=== PATIENT | female | born 1960 | race Caucasian/White ===

== ENCOUNTER 2024-12-11 19:17 | Observation (INO) ==
--- NOTE | 2024-12-11 19:40 | Emergency Department Note ---
HPI - Fall General Chief Complaint: Fall Stated Complaint: FALL Time Seen by Provider: 12/11/24 19:28 Source: patient Mode of arrival: walk-in Limitations: no limitations History of Present Illness MD complaint: Reports fall Onset (ago): hour(s) Fall from: Reports standing Fall witnessed: Reports yes, by family Place fall occurred: Reports home Loss of consciousness: none Prolonged down time: Reports no Symptoms prior to fall: Reports none Context: Reports tripped/slipped Location of injury: Reports head and pelvis Location of injury - extremities: Left: shoulder (pain and tenderness) Severity: moderate Quality: Reports sharp, aching and throbbing Associated symptoms (after fall): Reports headache and other (Pain, tenderness, contusion, hip pain) Related Data Allergies Allergy/AdvReac Type Severity Reaction Status Date / Time No Known Drug Allergies Allergy Verified 12/11/24 19:44 Review of Systems 2 Status of ROS 10 or more systems reviewed and unremark able except as noted in history and below Musculoskeletal Reports: extremity pain, joint pain and limited range of motion Integumentary/Breast Reports: redness and skin tenderness Neurological Reports: headache Psychiatric Reports: [facility] Medical History (Updated 12/11/24 @ 22:20 by Alysia Sin RN) Patient denies medical problems Surgical History (Updated 12/11/24 @ 22:21 by Alysia Sin RN) H/O: hysterectomy Hx of elbow surgery History of nasal surgery Social History Smoking status: never smoker Feel stressed/tense/nervous/anxious/difficulty sleeping: rather much Life stressor details: Current medical condition Exam 2 Constitutional: normal general appearance, distress noted (moderate), average body habitus, no limitations and alert Vital Signs - 24 hr 12/11/24 19:20 12/11/24 20:00 12/11/24 20:30 Temperature 97.2 F L Pulse Rate 74 68 71 Respiratory Rate 20 20 20 Blood Pressure 133/77 147/69 128/72 Pulse Oximetry 99 98 98 Oxygen Delivery Me thod Room Air Room Air Room Air 12/11/24 21:00 12/11/24 21:30 12/11/24 22:30 Temperature Pulse Rate 69 64 70 Respiratory Rate 18 18 18 Blood Pressure 133/73 132/68 131/75 Pulse Oximetry 98 98 99 Oxygen Delivery Me thod Room Air Room Air Room Air 12/12/24 00:30 12/12/24 01:00 12/12/24 01:30 Temperature Pulse Rate 65 66 68 Respiratory Rate 18 17 16 Blood Pressure 117/64 111/52 110/61 Pulse Oximetry 97 97 97 Oxygen Delivery Me thod Room Air Room Air Room Air 12/12/24 02:00 Temperature Pulse Rate 65 Respiratory Rate 18 Blood Pressure 104/56 Pulse Oximetry 97 Oxygen Delivery Dc thod Room Air HENMT: normocephalic, head/scalp traumatic (Hematoma to left occipital/parietal portion of head.) (tenderness), (contusion) and (hematoma), hearing grossly normal bilaterally, external ears normal, nasal mucous membranes normal, external nose normal, oral mucous membranes normal, oropharynx normal, dentition normal and gingiva normal Eyes: PERRL, EOMs intact bilaterally, conjunctivae normal, no scleral icterus, no papilledema, normal visual uribe by confrontation, alignment normal, periorbital findings normal and no nystagmus Neck/C-Spine: visual inspection normal, trachea midline, cervical spine nontender, cervical full ROM noted and supple Lymph: no lymphadenopathy noted and no lymphedema noted Chest: inspection of chest normal Respiratory: breath sounds equal bilaterally, normal respiratory effort, clear to auscultation bilaterally, no wheezes, no rales, no retractions and no use of accessory muscles Cardiovascular: normal heart rate noted, regular rhythm noted, no gallop, no JVD, peripheral pulses 2+ throughout and no additional abnormal heart sounds Gastrointestinal: abdomen normal to inspection, abdomen soft to palpation, nontender to palpation, nondistended, normoactive bowel sounds, no hepatosplenomegaly, no masses, no pulsatile mass and no ascites Genitourinary: no CVA tenderness and bladder normal to palpation Back/Pelvis: spine normal to inspection, no thoracic spine tenderness, no lumbar spine tenderness, thoracic spine ROM normal, lumbar spine ROM normal and no paraspinal muscle tenderness noted Extremities: normal to inspection, normal to palpation, tenderness noted, full ROM, no joint enlargement and no deformity Patient reports pain and tenderness on palpation of the left shoulder and in the humeral head joint, there is no noted crepitus, deviation, or deformity noted there. Patient also reports pain and tenderness on palpation of the left hip and withdrawals from pain immediately on laying the hand on the hip without pressing. Unable to feel crepitus; however, patient would not allow full evaluation due to increase in pain. Neurology: lead java programmer II-XII intact, no movement abnormality noted, no focal motor deficit noted, no sensory deficits noted, gait abnormality noted (unable to access), speech normal, coordination normal, no pronator drift noted, no fasciculations noted and GCS normal Psychiatry: Mental Status Exam documented within this Exam's Psych section mental status grossly normal, oriented x3 (Patient is alert and oriented to her normal state), thought process normal, cooperative, affect normal, psychomotor activity normal and memory normal Feel stressed/tense/nervous/anxious/difficulty sleeping: rather much Life stressor details: Current medical condition Skin: skin color normal, no rash, no lesions, no ecchymosis noted, no wounds, no lacerations, skin turgor normal, no jaundice, no petechiae, no mottling, nails normal and no alopecia Image: Body (4 view): 1. Hematoma, tenderness 2. Pain and tenderness on palpation and with range of motion 3. Pain and tenderness to touch, pain on range of motion, does not want the area palpated or examined. Course Course Hospital Course: 64-year-old female who presented to ER with complaint of falling at home and landing on a concrete pad striking the left side of her head her left shoulder and left hip and having pain in all 3 areas has been evaluated by physical exam, CT of the head and brain, CT of the left hip, and plain film x-ray of the left shoulder with results as noted in charting. Patient's head CT reveals no acute intercranial process, plain film x-ray reveals no acute bony fracture of the left shoulder, and CT of the left hip reveals a acetabular wall fracture with 2 mm dislocation. Patient initially did not want pain medication; however, patient has since requested to receive pain medication including 4 mg of morphine and 4 mg of Zofran. Patient will be transferred to a orthopedics hospital as soon as EMS is available to transfer her. :0 200 [facility] transfer line has called back at this time and discussed case with Dr. Epps and after sending him video of the CT scan and reporting patient's ability to ambulate he reported patient should not be transferred but should be admitted to the hospital for pain control with additional plain film x-rays of the pelvis. He advised that patient could forego surgical operation initially and may not require 1 at all and should be referred to Ortho and to PT as he believes her fracture to be stable as she is able to bear weight. Patient has been made aware of the provider's decision to not accept transfer and is advisement of admission locally which patient has agreed with at this time. Patient [facility] be admitted to the [facility] for pain control and orthopedic follow-up in the morning. Consultations Consultation #1: Spoke with Dr. Epps via the [facility] transfer line concerning patient's case and was advised patient could be admitted locally and follow-up with orthopedist tomorrow and possibly may only need physical therapy versus surgical consult. Time: 02:00 Vital Signs Vital signs: Vital Signs Temperature 97.2 F L 12/11/24 19:20 Pulse Rate 74 12/11/24 19:20 Respiratory Rate 20 12/11/24 19:20 Blood Pressure 133/77 12/11/24 19:20 Pulse Oximetry 99 12/11/24 19:20 Oxygen Delivery Method Room Air 12/11/24 19:20 Temperature 97.2 F L 12/11/24 19:20 Pulse Rate 65 12/12/24 02:00 Respiratory Rate 18 12/12/24 02:00 Blood Pressure 104/56 12/12/24 02:00 Pulse Oximetry 97 12/12/24 02:00 Oxygen Delivery Method Room Air 12/12/24 02:00 MDM - Fall MDM Narrative Medical decision making narrative: Medical Decision Making this patient Volle physical exam, CT of the head and brain, CT of the left hip, and plain film x-ray of the left shoulder. Differential Diagnosis Differential diagnosis: Likely dislocation of shoulder region, compression fracture, concussion without loss of consciousness and other (Left hip fracture, left shoulder fracture, subdural hematoma, epidural hematoma) Imaging Data Imaging ordered: CT scan - head and other (CT scan hip, plain film x-ray left shoulder) Attestation: I have reviewed the pertinent imaging results. My impression: No acute bony fracture of the left shoulder Radiologist's impression: EXAM: CT HIP LT WO CON HISTORY: fall with pain and decreased ROMfall with pain and decreased ROM; COMPARISON: None TECHNIQUE: Multiple CT axial images of the left hip were obtained without administration of IV contrast. Sagittal and coronal reformats were performed and reviewed. Dose reduction techniques including Automated Exposure Control (AEC) and adjustment of mA and kV were utilized. FINDINGS: Acute fracture seen involving the posterior acetabular wall, no significant displacement up to 2 mm. Enthesophytes greater trochanter. No femoral neck fracture. No dislocation. Visualized intrapelvic components unremarkable. Musculature unremarkable. IMPRESSION: acute left posterior acetabular wall fracture with articular extension and 2 mm displacement THIS IS AN ELECTRONICALLY VERIFIED FINAL REPORT 12/11/2024 9:20 PM - Electronically signed by Yoan Vidales MD EXAM: HEAD CT WITHOUT INTRAVENOUS CONTRAST HISTORY: Fall with hematoma. TECHNIQUE: Spiral axial CT images are obtained through the brain without the administration of intravenous contrast. Sagittal and coronal reformatted images are reconstructed. COMPARISON: None available. FINDINGS: There is mild diffuse cerebral cortical atrophy. The centrum semiovale, basal ganglia, cerebellum, and brainstem are otherwise grossly unremarkable for a noncontrast CT scan. There is no acute intracranial hemorrhage, discernible acute infarction, mass lesion, midline shift, or hydrocephalus seen. No extra-axial mass or abnormal fluid collection is seen. The calvarium is intact. The partially imaged paranasal sinuses, middle ear cavities, and mastoid air cells are clear. IMPRESSION: 1. No intracranial hemorrhage, discernible acute infarction, mass lesions, midline shift, mass effect or hydrocephalus seen. 2. Mild diffuse cerebral cortical atrophy. 3. Consider followup evaluation with MRI/MRA imaging for further assessment as clinically warranted. THIS IS AN ELECTRONICALLY VERIFIED FINAL REPORT 12/11/2024 9:06 PM - Electronically signed by Rosita Olivo MD Discharge Plan Discharge Patient Disposition: Admitted As Observation Condition: Stable Clinical Impression: Closed fracture of anterior wall of left acetabulum, Concussion without loss of consciousness, Contusion of left shoulder Time of Disposition: 02:00
[2024-12-11] MEDS: ONDANSETRON HCL/PF 4 MG/2 ML VIAL IVP ONE (23:22)
[2024-12-11] MEDS: MORPHINE SULFATE 4 MG/ML CARTRIDGE IVP ONE (23:22)
[2024-12-12] MEDS ORDERED: MORPHINE SULFATE 4 MG/ML CARTRIDGE IV PRN (02:47)
[2024-12-12] MEDS ORDERED: DOCUSATE SODIUM 100 MG CAPSULE PO PRN (02:47)
[2024-12-12] MEDS ORDERED: HYDROCODONE/ACETAMINOPHEN 7.5/325MG TABLET PO PRN (02:47)
[2024-12-12] MEDS ORDERED: ONDANSETRON HCL/PF 4 MG/2 ML VIAL INJ PRN (02:47)
[2024-12-12 05:31] LABS: Basophils%(Percent) Auto 0.9 (0.1-0.85); Eosinophils#(Absolute)Auto 0.1 (0.0-0.2); Eosinophils%(Percent) Auto 1.7 % (0.4-2.8); Granulocytes % - Auto 58.6 % (47.8-71.3); Granulocytes#(Absolute)- Auto 2.5 (2.3-6.0); Hematocrit 37.7 % (35.9-46.7); Mean Corpuscular Volume 86.2 fl (81.0-93.7); Monocytes #(Absolute)- Auto 0.3 (1.1-3.1); Monocytes %(Percent)- Auto 6.9 % (3.6-9.8); Platelet Count 206 K/uL (152-353); White Blood Count 4.3 K/uL (4.3-9.3)
[2024-12-12 05:53] LABS: Potassium 3.9 mmol/L (3.6-5.2)
[2024-12-12 08:28] VITALS: BP 102/59; PULSE 61; RESP 19; TEMP 97.7
[2024-12-12] MEDS: PANTOPRAZOLE SODIUM 40 MG TABLET.DR PO SCH (09:26)
[2024-12-12] MEDS: ENOXAPARIN SODIUM 40 MG/0.4 ML SYRINGE SUBQ SCH (09:26)
[2024-12-12] MEDS: ACETAMINOPHEN 500 MG TABLET PO PRN (09:40)
--- NOTE | 2024-12-12 10:13 | Short Stay Summary ---
H&P: HPI History of Present Illness Chief complaint: LEFT ANTERIOR ACETABULAR WALL FRACTURE,PAIN CONTRO Narrative: Patient fell on her left side and came to ED where imaging revealed Left acetabular fracture with 2 mm dislocation. Initial plan was to transfer out for Ortho however discussion between ER provider and Dr. Epps with [facility] revealed patient did not need to be transferred. She has stable fracture and is weight bearing and can be followed out patient by Ortho and PT. She was kept over night for pain control. She has refused pain medication. Will discharge home today. She will follow out patient with Ortho and PT. Review of Systems Status of ROS 10 or more systems reviewed and unremark able except as noted in history and below Musculoskeletal Reports: extremity pain, joint pain and limited range of motion Integumentary/Breast Reports: redness and skin tenderness Neurological Reports: headache Psychiatric Reports: anxiety [facility] Medical History (Updated 12/12/24 @ 10:09 by Ayah Agee NP) Patient denies medical problems Surgical History (Updated 12/11/24 @ 22:21 by Alysia Sin RN) H/O: hysterectomy Hx of elbow surgery History of nasal surgery Social History Smoking status: never smoker Problems where you live: no known problems Highest level of school completed/degree received: decline to answer Feel stressed/tense/nervous/anxious/difficulty sleeping: rather much Life stressor details: Current medical condition Gender Identity: female Meds Home Medications and Allergies Home Medications Medication Instructions Recorded Confirmed Type ezetimibe 10 mg tablet 10 mg PO DAILY 12/12/24 05/10/07 History gabapentin 300 mg capsule 300 mg PO BID 12/12/2412/12 History pantoprazole 40 mg tablet,delayed 40 mg PO DAILY 12/1212/12/24 History release phentermine 37.5 mg tablet 37.5 mg PO DAILY 12/12/24 0 12/12/24 History Allergies Allergy/AdvReac Type Severity Reaction Status Date / Time No Known Drug Allergies Allergy Verified 12/11/24 19:44 Exam Constitutional: normal general appearance, distress noted (moderate), average body habitus, no limitations and alert Vital Signs - 24 hr 12/11/24 19:20 12/11/24 20:00 12/11/24 20:30 Temperature 97.2 F L Pulse Rate 74 68 71 Pulse Rate [Bilate ral] Respiratory Rate 20 20 20 Blood Pressure 133/77 147/69 128/72 Blood Pressure [Le ft Arm] Pulse Oximetry 99 98 98 [facility] Room Air Room Air 12/11/24 21:00 12/11/24 21:30 12/11/24 22:30 Temperature Pulse Rate 69 64 70 Pulse Rate [Bilate ral] Respiratory Rate 18 18 18 Blood Pressure 133/73 132/68 131/75 Blood Pressure [Le ft Arm] Pulse Oximetry 98 98 99 Oxygen Delivery [facility] Room Air Room Air Room Air 12/12/24 00:30 12/12/24 01:00 12/12/24 01:30 Temperature Pulse Rate 65 66 68 Pulse Rate [Bilate ral] Respiratory Rate 18 17 16 Blood Pressure 117/64 111/52 110/61 Blood Pressure [Le ft Arm] Pulse Oximetry 97 97 97 Oxygen Delivery [facility] Room Air Room Air Room Air 12/12/24 02:00 12/12/24 02:30 12/12/24 03:00 Temperature Pulse Rate 65 60 56 L Pulse Rate [Bilate ral] Respiratory Rate 18 14 14 Blood Pressure 104/56 104/52 100/66 Blood Pressure [Le ft Arm] Pulse Oximetry 97 97 98 Oxygen Delivery [facility] Room Air Room Air 12/12/24 03:00 12/12/24 04:00 12/12/24 04:06 Temperature 97.5 F L Pulse Rate 56 L Pulse Rate [Bilate ral] 64 Respiratory Rate 14 17 Blood Pressure 100/66 Blood Pressure [Le ft Arm] 110/64 Pulse Oximetry 98 97 Oxygen Delivery [facility] Room Air Room Air Room Air 12/12/24 08:00 Temperature 97.7 F Pulse Rate Pulse Rate [Bilate ral] 61 Respiratory Rate 19 Blood Pressure Blood Pressure [Le ft Arm] 102/59 Pulse Oximetry 99 [facility] HENMT: normocephalic, head/scalp traumatic (Hematoma to left occipital/parietal portion of head.) (tenderness), (contusion) and (hematoma), hearing grossly normal bilaterally, external ears normal, nasal mucous membranes normal, external nose normal, oral mucous membranes normal, oropharynx normal, dentition normal and gingiva normal Eyes: PERRL, EOMs intact bilaterally, conjunctivae normal, no scleral icterus, no papilledema, normal visual uribe by confrontation, alignment normal, periorbital findings normal and no nystagmus Neck/C-Spine: visual inspection normal, trachea midline, cervical spine nontender, cervical full ROM noted and supple Lymph: no lymphadenopathy noted and no lymphedema noted Chest: inspection of chest normal Respiratory: breath sounds equal bilaterally, normal respiratory effort, clear to auscultation bilaterally, no wheezes, no rales, no retractions and no use of accessory muscles Cardiovascular: normal heart rate noted, regular rhythm noted, no gallop, no JVD, peripheral pulses 2+ throughout and no additional abnormal heart sounds Gastrointestinal: abdomen normal to inspection, abdomen soft to palpation, nontender to palpation, nondistended, normoactive bowel sounds, no hepatosplenomegaly, no masses, no pulsatile mass and no ascites Genitourinary: no CVA tenderness and bladder normal to palpation Back/Pelvis: spine normal to inspection, no thoracic spine tenderness, no lumbar spine tenderness, thoracic spine ROM normal, lumbar spine ROM normal and no paraspinal muscle tenderness noted Extremities: normal to inspection, normal to palpation, tenderness noted, full ROM, no joint enlargement and no deformity Patient reports pain and tenderness on palpation of the left shoulder and in the humeral head joint, there is no noted crepitus, deviation, or deformity noted there. Patient also reports pain and tenderness on palpation of the left hip and withdrawals from pain immediately on laying the hand on the hip without pressing. Unable to feel crepitus; however, patient would not allow full evaluation due to increase in pain. Neurology: cage tender II-XII intact, no movement abnormality noted, no focal motor deficit noted, no sensory deficits noted, gait abnormality noted (unable to access), speech normal, coordination normal, no pronator drift noted, no fasciculations noted and GCS normal Psychiatry: Mental Status Exam documented within this Exam's Psych section mental status grossly normal, oriented x3 (Patient is alert and oriented to her normal state), thought process normal, cooperative, affect normal, psychomotor activity normal and memory normal Skin: skin color normal, no rash, no lesions, no ecchymosis noted, no wounds, no lacerations, skin turgor normal, no jaundice, no petechiae, no mottling, nails normal and no alopecia Assessment and Plan Assessment and Plan (1) Left acetabular fracture: Code(s): S32.402A - Unspecified fracture of left acetabulum, initial encounter for closed fracture (2) Pain: Code(s): R52 - Pain, unspecified (3) Fall: Code(s): W19.XXXA - Unspecified fall, initial encounter (4) Need for physical therapy assessment: Code(s): Z01.89 - Encounter for other specified special examinations Procedures Procedure Instructions Patient will discharge home today and follow up out patient with [facility] in [place], [place]. She has appiontment on Sunday at 9 with [facility]. Results Labs Labs: CBC 12/12/24 Range/Units 05:25 WBC 4.3 (4.3-9.3) K/uL RBC 4.4 (4.00-5.50) M/uL Hgb 12.7 (12.5-15.8) gm/dL Hct 37.7 (35.9-46.7) % Plt Count 206 (152-353) K/uL Gran % 58.6 (47.8-71.3) % Lymph % (Auto) 31.9 (20.0-43.0) % [place] % (Auto) 6.9 (3.6-9.8) % Eos % (Auto) 1.7 (0.4-2.8) % Baso % (Auto) 0.9 H (0.1-0.85) Lymph # (Auto) 1.4 (1.1-3.1) [place] # (Auto) 0.3 L (1.1-3.1) Eos # (Auto) 0.1 (0.0-0.2) Baso # (Auto) 0.0 (0.0-0.1) Absolute Gran (auto) 2.5 (2.3-6.0) CMP 12/12/24 05:25 Sodium 137 Potassium 3.9 Chloride 104.0 Carbon Dioxide 31 BUN 13 Creatinine 0.8 Glucose 145 H Calcium 8.8 Liver Function 12/12/24 Range/Units 05:25 Total Bilirubin 0.41 (0.0-1.0) mg/dL AST 14 L (15-37) U/L ALT 19 L (30-65) U/L Alkaline Phosphatase 45 L (50-136) U/L Albumin 3.2 L (3.4-5.0) g/dL DS: Providers Provider Date of admission: 12/12/24 02:47 Primary care physician: ODALIS BOOKER MD Consults: 12/12/24 02:47 Consult to Case Management Routine Comment: Consulting Provider: Physician Instructions: Reason for consultation: Consult for orthopedic and physical therapy per recommendation from Dr. Cesar Attending physician on discharge: Ayah Agee Discharging clinician: Ayah Agee Anticipated date of discharge: 12/12/24 DS: Summary Hospital Course Hospital Course: 64-year-old female who presented to ER with complaint of falling at home and landing on a concrete pad striking the left side of her head her left shoulder and left hip and having pain in all 3 areas has been evaluated by physical exam, CT of the head and brain, CT of the left hip, and plain film x-ray of the left shoulder with results as noted in charting. Patient's head CT reveals no acute intercranial process, plain film x-ray reveals no acute bony fracture of the left shoulder, and CT of the left hip reveals a acetabular wall fracture with 2 mm dislocation. Patient initially did not want pain medication; however, patient has since requested to receive pain medication including 4 mg of morphine and 4 mg of Zofran. Patient will be transferred to a orthopedics hospital as soon as EMS is available to transfer her. :0 200 [facility] transfer line has called back at this time and discussed case with Dr. Epps and after sending him video of the CT scan and reporting patient's ability to ambulate he reported patient should not be transferred but should be admitted to the hospital for pain control with additional plain film x-rays of the pelvis. He advised that patient could forego surgical operation initially and may not require 1 at all and should be referred to Ortho and to PT as he believes her fracture to be stable as she is able to bear weight. Patient has been made aware of the provider's decision to not accept transfer and is advisement of admission locally which patient has agreed with at this time. Patient will be admitted to the [facility] floor for pain control and orthopedic follow-up in the morning. Status at Discharge Functional status at discharge: independent ambulation Overall status at discharge: patient is not back to baseline Time Spent with Patient Time attestation: Total time spent providing and/or coordinating discharge services: 45 Discharge Plan Discharge Disposition: Home, Self-Care Condition: Stable Discharge Medications: Continued ezetimibe 10 mg tablet 10 mg PO DAILY Patient Comments: TAKE 1 TABLET BY MOUTH ONCE DAILY gabapentin 300 mg capsule 300 mg PO BID Patient Comments: TAKE 1 CAPSULE BY MOUTH TWICE DAILY pantoprazole 40 mg tablet,delayed release (DR/EC) 40 mg PO DAILY Patient Comments: TAKE 1 TABLET BY MOUTH ONCE DAILY phentermine 37.5 mg tablet 37.5 mg PO DAILY Patient Comments: TAKE 1 TABLET BY MOUTH ONCE DAILY FOR 30 DAYS Discharge Orders: Discharge Order (Routine); Ordered 12/12/24 Ordered By: Ayah Agee Activity Detail: Activity as necessary until follow up with Ortho on Sunday Diet: advance to your usual diet Forms: Portal/Health Info Access Inst Follow-Ups: Denise Silverman NP [Physician, Medical] - 12/17/24 9:30 am Referral Note: [facility] FOLLOW UP APPOINTMENT ON 12/15/2024 @ 9 AM
== END 2024-12-12 10:22 | disposition home or self-care (01) ==
LOC: MS 19:17 → ED 19:17 → MS 12-12 03:10
PROVIDERS: ADMIT Nurse Practitioner Family; ATTEND Family Medicine